=== PATIENT | female | born 1980 | race Caucasian/White ===

== ENCOUNTER 2024-02-29 15:09 | Emergency (ER) | payer BC ==
[~2024-02-29] VITALS: Ht 165.1 cm; Wt 90.7 kg
[2024-02-29] MEDS ORDERED: diphenhydrAMINE hydrochloride 50 MG/ML VIAL IV ONE (15:30)
[2024-02-29] MEDS ORDERED: FAMOTIDINE 50 ML IV ONE (15:30)
[2024-02-29] MEDS ORDERED: Dexamethasone Sodium Phospha 20 MG/5 ML VIAL IV ONE (15:30)
== END 2024-02-29 17:07 | disposition home or self-care (01) ==
LOC: ED 15:09
DX: T78.1XXA Other adverse food reactions, not elsewhere classified, initial encounter (principal); L50.9 Urticaria, unspecified; E03.9 Hypothyroidism, unspecified; Z88.8 Allergy status to other drugs, medicaments and biological substances; Z91.018 Allergy to other foods; X58.XXXA Exposure to other specified factors, initial encounter